=== PATIENT | female | born 1985 | race American Indian/Alaskan Native ===

== ENCOUNTER 2017-11-28 13:12 | Emergency (ER) | payer MEDICAID ==
[2017-11-28 13:21] VITALS: RESP 18; O2SAT 100; BMI 32.3
[2017-11-28 13:25] VITALS: TEMP 98.4
--- NOTE | 2017-11-28 13:49 | ED PDOC ---
Arrival/HPI - General Chief Complaint: Syncope Time Seen by Provider: 11/28/17 13:16 Historian: Patient - History of Present Illness Narrative History of Present Illness (Text): 11/28/17 13:18 A 32 year old female, whose past medical history includes anxiety and PTSD, presents to the emergency department sent in for rapid response. Patient experienced syncopal episode after learning her grandmother . Patient states before syncopal, she could smell apples, and immediately blacked out afterwards. Patient has been experiencing much stress lately and takes a while to gain strength back. Notes also feeling weak but not as much as before. PMD: Dr. Ike Redmond Past Medical History - Provider Review Nursing Documentation Reviewed: Yes - Infectious Disease Hx of Infectious Diseases: None - Tetanus Immunization Tetanus Immunization: Unknown - Cardiac Hx Cardiac Disorders: No - Pulmonary Hx Asthma: Yes - Musculoskeletal/Rheumatological Hx Musculoskeletal Disorders: Yes Hx Back Pain: Yes Hx Herniated Disk: Yes - Psychiatric Hx Anxiety: Yes Hx Depression: No Hx Post Traumatic Stress Disorder: Yes Hx Substance Use: No - Surgical History Hx Cholecystectomy: Yes - Anesthesia Hx Anesthesia: No Hx Anesthesia Reactions: No Hx Malignant Hyperthermia: No - Suicidal Assessment Feels Threatened In Home Enviroment: No Family/Social History - Physician Review Nursing Documentation Reviewed: Yes Family/Social History: No Known Family HX Smoking Status: Never Smoked Hx Alcohol Use: No Hx Substance Use: No Allergies/Home Meds Allergies/Adverse Reactions: Allergies pollen extracts Allergy (Verified 11/28/17 13:25) CONGESTION shrimp Allergy (Verified 11/28/17 13:25) URTICARIA Home Medications: Home Meds Medication Instructions Recorded Confirmed Loratadine [Claritin] 10 mg PO DAILY 06/01/16 08/29/17 Muscle Relaxant 08/29/17 Wellbutrin Sr 08/29/17 Review of Systems - Physician Review All systems were reviewed & negative as marked: Yes - Review of Systems Constitutional: absent: Other (no head trauma) Cardiovascular: Syncope Physical Exam Vital Signs Reviewed: Yes Vital Signs Temp Pulse Resp BP Pulse Ox 11/28/17 13:56 93 H 18 126/76 100 11/28/17 13:24 98.4 F 11/28/17 13:20 100 H 18 150/87 100 Temperature: Afebrile Blood Pressure: Normal Pulse: Regular Respiratory Rate: Normal Appearance: Positive for: Well-Appearing Pain Distress: None Mental Status: Positive for: Alert and Oriented X 3 Finger Stick Blood Glucose: 90 - Systems Exam Head: Present: Atraumatic, Normocephalic Pupils: Present: PERRL Extroacular Muscles: Present: EOMI Conjunctiva: Present: Normal Mouth: Present: Moist Mucous Membranes Neck: Present: Normal Range of Motion Respiratory/Chest: Present: Clear to Auscultation, Good Air Exchange. No: Respiratory Distress, Accessory Muscle Use Cardiovascular: Present: Regular Rate and Rhythm, Normal S1, S2. No: Murmurs Abdomen: Present: Normal Bowel Sounds. No: Tenderness, Distention, Peritoneal Signs Back: Present: Normal Inspection Upper Extremity: Present: Normal Inspection. No: Cyanosis, Edema Lower Extremity: Present: Normal Inspection. No: Edema Neurological: Present: GCS=15, CN II-XII Intact, Speech Normal Skin: Present: Warm, Dry, Normal Color. No: Rashes Psychiatric: Present: Alert, Oriented x 3, Normal Insight, Normal Concentration Medical Decision Making ED Course and Treatment: 11/28/17 13:32 Impression: 32 year old female with syncopal episode. Differential Diagnosis included but are not limited to: Vasovagal Syncopal episode Plan: -- EKG -- Fingerstick normal -- Patient is very stable for discharged. She understands to return to the ED if symptoms worsen or any other concern. Prior Visits: Notes and results from previous visits were reviewed. Patient was last seen in the emergency department on 08/29/2017 for leg and back pain. Patient was discharged home. Progress Notes: EKG: Ordered, reviewed, and independently interpreted the EKG. Rate : 98 BPM Rhythm : NSR Interpretation : No ST-segment elevations or depressions, no T-wave inversions, normal intervals. Comparison : No previous EKG for comparison. - Scribe Statement The provider has reviewed the documentation as recorded by the Allan Adkins Provider Scribe Attestation: All medical record entries made by the Scribe were at my direction and personally dictated by me. I have reviewed the chart and agree that the record accurately reflects my personal performance of the history, physical exam, medical decision making, and the department course for this patient. I have also personally directed, reviewed, and agree with the discharge instructions and disposition. Disposition/Present on Arrival - Present on Arrival Any Indicators Present on Arrival: No History of DVT/PE: No History of Uncontrolled Diabetes: No Urinary Catheter: No History of Decub. Ulcer: No History Surgical Site Infection Following: None - Disposition Have Diagnosis and Disposition been Completed?: Yes Diagnosis: Vasovagal syncope Disposition: HOSPITALIZED Disposition Time: 13:37 Condition: IMPROVED Discharge Instructions (ExitCare): Syncope (ED) Additional Instructions: Ms Sommer, thank you for letting us take care of you today. Your provider was Dr. Arechiga. You were treated for Vasovagal Syncope. The emergency medical care you received today was directed at your acute symptoms. If you were prescribed any medication, please fill it and take as directed. It may take several days for your symptoms to resolve. Return to the Emergency Department if your symptoms worsen, do not improve, or if you have any other problems. Please contact your doctor or call one of the physicians/clinics you have been referred to that are listed on the Patient Visit Information form that is included in your discharge packet. Bring any paperwork you were given at discharge with you along with any medications you are taking to your follow up visit. Our treatment cannot replace ongoing medical care by a primary care provider (PCP) outside of the emergency department. Thank you for allowing the [facility] team to be part of your care today. If you had an X-Ray or CT scan: A Radiologist will review the ED reading if any change in treatment is needed we will contact you. If you had a blood, urine, or wound culture: It will take several days for the results, if any change in treatment is needed we will contact you. If you had an STI test: It will take 48 hours for the results. Please call after 1 week if you have not heard back. Referrals: Ike Redmond, DNP, [employer] [Primary Care Provider] - Follow up with primary Forms: [employer] (Welsh)
[2017-11-28 13:56] VITALS: BP 126/76; PULSE 93
--- NOTE | 2017-11-28 14:59 | PCM.RRT ---
<Diane Queen - Last Filed: 11/28/17 14:55> ORTHOPEDIC CAST SPECIALIST Nurse Assessment - Situation Date: 11/28/17 Time ORTHOPEDIC CAST SPECIALIST was called: 13:04 ORTHOPEDIC CAST SPECIALIST Responder Arrival Time: 13:06 ORTHOPEDIC CAST SPECIALIST Location:: [address] [place] [address] Room Number: Hallway ORTHOPEDIC CAST SPECIALIST Reason for Call: Change in Mental Status (Patient fell) ORTHOPEDIC CAST SPECIALIST Called By: RN - IV IV Inserted during ORTHOPEDIC CAST SPECIALIST?: No - Respiratory Oxygen Delivery Method: Room Air Received Nebulizer Treatments:: No Was the Patient Ventilated with Bag/Mask 100% O2?: No Secretions Suctioned?: No Was the Patient Intubated?: No Was the Patient Placed on a Ventilator?: No - Diagnostic Test Ordered EKG: Yes Chest X-Ray: No CT Scan: No CPR started during ORTHOPEDIC CAST SPECIALIST?: No - Vital Signs Vital Sign: BP: 150/100 - Alliance Coma Scale Coma Scale Eye Opening: Spontaneous Coma Scale Motor: Obeys Commands Movement Coma Scale Verbal: Oriented - Time ORTHOPEDIC CAST SPECIALIST Ended Time ORTHOPEDIC CAST SPECIALIST Ended: 13:20 - Recommendations 5) ORTHOPEDIC CAST SPECIALIST Level of Care Recommendations: Discharge to Emergency Room Notifications: Attending Physician I.Reason for ORTHOPEDIC CAST SPECIALIST - A) Acute Change in Patient: Subjective: Patient fell after family member, who was also a patient in the hospital, was pronounced . She reports that she became light headed, and then her legs gave out. She reports that this always happens to her when she is under stress, and it takes a few minutes for her to regain her strength. She denies any chest pain, shortness of breath, headache, focal weakness or numbness. - Neurological Status (Select all that apply): Alert, Responsive, Oriented, Verbal, Follows Commands - Respiratory Oxygen Delivery Method: Room Air - Constitutional Appears: Well, Non-toxic, No Acute Distress - Head Head Exam: ATRAUMATIC, NORMOCEPHALIC - Eyes Eye Exam: EOMI, Normal appearance, PERRL - Respiratory Exam Respiratory Exam: Clear to Ausculation Bilateral, NORMAL BREATHING PATTERN - Cardiovascular Exam Cardiovascular Exam: RRR, +S1, +S2 - GI/Abdominal Exam GI & Abdominal Exam: Soft, Normal Bowel Sounds. absent: Tenderness - Neurological Exam Neurological Exam: Alert, Awake, Oriented x3 - Extremities Exam Extremities Exam: Full ROM, Normal Capillary Refill Plan - Assessment of Findings&Treatment Plan Patient syncopized during a stressful situation, likely vasovagal. Patient was noted to have elevated blood pressure, but denied confusion, focal weakness or numbness, or chest pain. Remainder of vital signs were normal. Neurological exam was normal. She was tranferred to the ER for further management. <Gordy Baer - Last Filed: 11/28/17 15:36> Attending/Attestation - Attestation I have personally seen and examined this patient.: Yes I have fully participated in the care of the patient.: Yes I have reviewed all pertinent clinical information, including history, physical exam and plan: Yes Notes (Text): 11/28/17 15:34 Attending note; Rapid response/code star was called. The patient was evaluated by resident and transferred to ER. Case discussed with resident in detail. The patient was evaluated by ER attending. The patient apparently had an episode of unresponsiveness/fell after hearing that the family member in the hospital. Vitals stable. Patient was alert and awake during transfer to the ER. Patient was evaluated and discharged by ER attending.
--- NOTE | 2017-11-28 15:51 | CARD ---
APPROVED REPORT EKG Measurement Heart [id number] <Conclusion> Normal sinus rhythm Normal ECG
== END 2017-11-28 13:54 | disposition home or self-care (01) ==
LOC: ED 13:12
DX: R55 Syncope and collapse (principal)

== ENCOUNTER 2018-02-20 13:32 | Emergency (ER) | payer MEDICAID ==
[2018-02-20 13:48] VITALS: BMI 30.7
[2018-02-20 13:54] VITALS: BP 136/76; PULSE 78; RESP 18; TEMP 98.3; O2SAT 98
--- NOTE | 2018-02-20 14:23 | ED PDOC ---
Arrival/HPI - General Chief Complaint: Cough, Cold, Congestion Time Seen by Provider: 02/20/18 14:04 Historian: Patient - History of Present Illness Narrative History of Present Illness (Text): 02/20/18 14:17 Pt is a 32 year old female, whose past medical history includes anxiety, PTSD, and costochondritis, presents to the emergency department for 1 day of excessive coughing, nasal congestion and watery eyes. Patient reports having chronic chest pain after her grandmother but now is experiencing allergy-like symptoms since yesterday that turned into a cough with clear-white sputum tinged with blood. 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 Patient has been experiencing a lot of emotional stress lately and feels weak. Denies fever,nausea, vomiting, diarrhea, abdominal pain, headache, or any other symptoms. PMD: Dr. Ike Redmond Time/Duration: 24 hours Symptom Onset: Sudden Symptom Course: Intermittent Quality: Pressure Severity Level: 1 Activities at Onset: Rest Context: Home Past Medical History - Provider Review Nursing Documentation Reviewed: Yes - Travel History Have you recently traveled outside [place] w/in the past 3 mons?: No - Infectious Disease Hx of Infectious Diseases: None - Tetanus Immunization Tetanus Immunization: Unknown - Cardiac Hx Cardiac Disorders: No - Pulmonary Hx Asthma: Yes - Musculoskeletal/Rheumatological Hx Musculoskeletal Disorders: Yes Hx Back Pain: Yes Hx Herniated Disk: Yes - Psychiatric Hx Anxiety: Yes Hx Post Traumatic Stress Disorder: Yes Hx Substance Use: No - Surgical History Hx Cholecystectomy: Yes - Anesthesia Hx Anesthesia: No Hx Anesthesia Reactions: No Hx Malignant Hyperthermia: No - Suicidal Assessment Feels Threatened In Home Enviroment: No Family/Social History - Physician Review Nursing Documentation Reviewed: Yes Family/Social History: Unknown Family HX Smoking Status: Never Smoked Hx Alcohol Use: No Hx Substance Use: No Allergies/Home Meds Allergies/Adverse Reactions: Allergies pollen extracts Allergy (Verified 11/28/17 13:25) CONGESTION shrimp Allergy (Verified 11/28/17 13:25) URTICARIA Home Medications: Home Meds Medication Instructions Recorded Confirmed Loratadine [Claritin] 10 mg PO DAILY 06/01/16 08/29/17 Muscle Relaxant 08/29/17 Wellbutrin Sr 08/29/17 Review of Systems - Review of Systems Constitutional: Fatigue, Fevers Eyes: Normal ENT: Sore Throat, Rhinorrhea Respiratory: SOB, Cough, Sputum Cardiovascular: Chest Pain Gastrointestinal: Normal Genitourinary Female: Normal Musculoskeletal: Normal Skin: Normal Neurological: Normal Endocrine: Normal Hemo/Lymphatic: Normal Psychiatric: Normal Physical Exam Vital Signs Reviewed: Yes Vital Signs Temp Pulse Resp BP Pulse Ox 02/20/18 13:33 98.3 F 78 18 136/76 98 Temperature: Afebrile Blood Pressure: Normal Pulse: Regular Respiratory Rate: Normal Appearance: Positive for: Well-Appearing, Non-Toxic, Comfortable Pain Distress: Mild Mental Status: Positive for: Alert and Oriented X 3 - Systems Exam Head: Present: Atraumatic, Normocephalic Pupils: Present: PERRL Extroacular Muscles: Present: EOMI Conjunctiva: Present: Normal, Other (watery discharge) Ears: Present: Normal Mouth: Present: Moist Mucous Membranes Pharnyx: Present: ERYTHEMA. No: EXUDATE, TONSILS ENLARGED Neck: Present: Normal Range of Motion Respiratory/Chest: Present: Clear to Auscultation, Good Air Exchange. No: Respiratory Distress, Accessory Muscle Use, Wheezes, Decreased Breath Sounds Cardiovascular: Present: Regular Rate and Rhythm, Normal S1, S2. No: Murmurs Abdomen: No: Tenderness, Distention, Peritoneal Signs Back: Present: Normal Inspection Upper Extremity: Present: Normal Inspection. No: Cyanosis, Edema Lower Extremity: Present: Normal Inspection. No: Edema Neurological: Present: GCS=15, CN II-XII Intact, Speech Normal Skin: Present: Warm, Dry, Normal Color. No: Rashes Psychiatric: Present: Alert, Oriented x 3, Normal Insight, Normal Concentration , Anxious, Agitated, Other (paranoid) Medical Decision Making ED Course and Treatment: 02/20/18 14:23 Impression Pt is a 32 year old female, whose past medical history includes anxiety, PTSD, and costochondritis, presents to the emergency department for 1 day of excessive coughing, nasal congestion and watery eyes On exam, eyes injected and watery discharge b/l, erythema surround the nares, pharynx erythematous with no exudates appreciated; lungs cleat to auscultation, no murmurs appreciated; the rest of the exam benign Plan ECG, CXR, Labs, UA DuoNeb Tx Assess and dispo Progress Note 02/20/18 15:01 Pt had no change in status after neb tx; remains nasally congested with watery eyes pt says she cannot produce urine because she is dehydrated so IVF ordered; pt got very upset with staff saying she did not need to give urine for a test and UA and wanted to know what else was ordered; explained that we need to do a POC hcg before imaging and asses the urine for possible infection or other finding; pt said she was giving verbal acknowledgement that she is not so that should be enough; pt suggested blood hcg to which we agreed along with administering IVFs. Less than 5 minutes later, pt came over to desk and announced that she was going to leave because the hospital and her care is causing her great emotional stress; Pt's wishes were respected and AMA papers were prepared. Pt came back to desk 2 more times stating that she wanted to get a list of every test that was ordered and will contact hospital supervisor pigment making and patient care services as she felt traumatized by her stay here today. Once AMA and discharge papers were prepared, patient child care coordinator accompanied me ( RAFAEL Laird) out to the ED lobby where the pt was waiting as she did not want to be in the treatment area anymore. Pt took the AMA document, read it, then stated that she would not sign it as it did not reflect the current situation and was inaccurate. Document was given back and pt continued to say that she never wanted to be at this hospital because it only causes her emotional pain. She then concluded that I, the PA, had horrible bedside manner. The patient care service specialist was witness to this conversation and documented the incident according to hospital protocol. - Lab Interpretations Lab Results: 02/20/18 15:00 02/20/18 14:25 Lab Results 02/20/18 15:00: WBC 5.7, RBC 3.76, Hgb 11.6 L, Hct 33.9 L, MCV 90.2, MCH 30.9, MCHC 34.2, RDW 14.0, Plt Count 253, MPV 9.6, Gran % 69.7 H, Lymph % (Auto) 14.4 L, [place] % (Auto) 14.1 H, Eos % (Auto) 1.4 L, Baso % (Auto) 0.4, Gran # 3.96, Lymph # (Auto) 0.8 L, [place] # (Auto) 0.8 H, Eos # (Auto) 0.1, Baso # (Auto) 0.02 02/20/18 14:25: Influenza Typ A,B (EIA) Negative for flu a/b 02/20/18 14:25: Sodium 139, Potassium 3.4 L, Chloride 107, Carbon Dioxide 23, Anion Gap 13, BUN 10, Creatinine 0.7, Est GFR ( Amer) > 60, Est GFR (Non- Af Amer) > 60, Random Glucose 78, Calcium 8.7, Total Bilirubin 0.5, AST 36, ALT 27, Alkaline Phosphatase 45, Total Protein 6.7, Albumin 4.1, Globulin 2.6, Albumin/Globulin Ratio 1.5 - Medication Orders Current Medication Orders: Discontinued Medications Albuterol/Ipratropium (Duoneb 3 Mg/0.5 Mg (3 Ml) Ud) 3 ml IH STAT STA Stop: 02/20/18 14:26 Last Admin: 02/20/18 14:37 Dose: 3 ml Sodium Chloride (Sodium Chloride 0.9%) 500 mls @ 999 mls/hr IV .Q31M STA Stop: 02/20/18 15:30 Last Admin: 02/20/18 15:05 Dose: Not Given Non-Admin Reason: Patient Refused Disposition/Present on Arrival - Present on Arrival Any Indicators Present on Arrival: Yes History of DVT/PE: No History of Uncontrolled Diabetes: No Urinary Catheter: No History of Decub. Ulcer: No History Surgical Site Infection Following: None - Disposition Have Diagnosis and Disposition been Completed?: No Diagnosis: Seasonal allergies Disposition: AGAINST MEDICAL ADVICE Disposition Time: 15:18 Patient Plan: Discharge Condition: GOOD Discharge Instructions (ExitCare): Seasonal Allergies in Adults, Sinusitis, Adult (DC) Referrals: Leonidas Peace MD [Primary Care Provider] - Follow up with primary Forms: [employer] (Greek)
[2018-02-20] MEDS ORDERED: Albuterol-Ipratrop 3 mg / 0.5 (3 ml) UD IH STA (14:25)
[2018-02-20] MEDS ORDERED: Sodium Chloride 0.9% 500 ML IV STA (15:00)
[2018-02-20 15:02] LABS: BASO # 0.02 K/mm3 (0.0-2.0); BASO % 0.4 % (0.0-3.0); EOS # 0.1 (0.0-0.7); EOS % 1.4 % (1.5-5.0); GRAN # 3.96 (1.4-6.5); GRAN % 69.7 % (50.0-68.0); HEMOGLOBIN 11.6 g/dL (12.0-16.0); LYMPH # 0.8 (1.2-3.4); LYMPH % 14.4 % (22.0-35.0); MEAN CELL VOLUME 90.2 fl (80.0-105.0); MEAN CORPUSCULAR HEMOGLOBIN 30.9 pg (25.0-35.0); MEAN CORPUSCULAR HGB CONC 34.2 g/dl (31.0-37.0); MEAN PLATELET VOLUME 9.6 fl (7.0-11.0); MONO # 0.8 (0.1-0.6); MONO % 14.1 % (1.0-6.0); RBC 3.76 10^6/uL (3.5-6.1); WHITE BLOOD COUNT 5.7 10^3/ul (4.5-11.0)
[2018-02-20 15:15] LABS: ALB/GLOB RATIO 1.5 (1.1-1.8); ALBUMIN 4.1 g/dL (3.0-4.8); ALT/SGPT 27 U/L (7-56); AST/SGOT 36 U/L (14-36); BLOOD UREA NITROGEN 10 mg/dL (7-21); CALCIUM 8.7 mg/dL (8.4-10.5); GFR AFRICAN-AMERICAN > 60; GFR NON-AFRICAN AMERICAN > 60
== END 2018-02-20 15:29 | disposition left against medical advice (07) ==
LOC: ED 13:32
DX: J30.2 Other seasonal allergic rhinitis (principal)